=== PATIENT | male | born 1955 | race Caucasian/White ===

== ENCOUNTER 2022-08-05 00:41 | Day surgery (SDC) | payer MEDICARE, OTHER, SELFPAY ==
[2022-07-25 10:58] VITALS: BMI 27.1
--- NOTE | 2022-08-04 14:22 | P.HP_ITS ---
History of Present Illness History of Present Illness Consent: Risks, benefits, and alternatives have been discussed and questions answered. Patient agrees to proceed with procedure. Chief complaint: positive cologuard Narrative: Geremias Amin is a 67 year old male Referred for colon cancer screening Review of Systems Review of Systems: All systems reviewed & are unremarkable except as noted in HPI and below PMFSH Past Medical History Medical History Chronic low back pain History of arthritis History of hyperlipidemia History of hypertension Left knee pain Sensorineural hearing loss (SNHL) of both ears 55% Subacromial impingement of left shoulder Type 2 diabetes mellitus Surgical History Surgical History History of appendectomy 03/1979 History of elbow surgery 2011 History of hand surgery Cyst on hand and fingers- Dr. 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 Family History Family History Mother Family history of cardiovascular disease Social History Social History Smoking status: Never smoker Second hand tobacco smoke exposure: No Alcohol intake: former Substance use: never Substance use type: does not use Living arrangements: alone Gender identity (if verbalized by the patient): Male Sexual Orientation (if Verbalized by the Patient): Straight or Heterosexual Spiritual care concerns: No Meds Home Medications and Allergies Home Medications Medication Instructions Recorded Confirmed Type blood sugar diagnostic (Blood #100 ea 07/15/20 01/21/21 Rx Glucose Test strips) blood-glucose meter #1 ea 07/15/20 01/21/21 Rx lancets #200 ea 07/15/20 01/21/21 Rx rosuvastatin 5 mg tablet 5 mg PO DAILY #90 tabs 04/28/22 07/25/22 Rx glimepiride 2 mg tablet 2 mg PO BID #180 tabs 05/25/22 07/25/22 Rx Allergies Allergy/AdvReac Type Severity Reaction Status Date / Time dapagliflozin [From Farxiga] AdvReac Intermediate Other Verified 08/05/22 07:24 metformin AdvReac Intermediate diarrhea Verified 08/05/22 07:24 Exam Const: General: alert Orientation/consciousness: patient oriented x3 Resp: Auscultation: clear to auscultation bilaterally Cardio: Rhythm: regular rhythm GI: GI Palp: Yes Soft to palpation and No Tenderness to palpation present (GI) Neuro: General: patient oriented x3 Assessment and Plan Assessment and plan (1) Colon cancer screening: Code(s): Z12.11 - Encounter for screening for malignant neoplasm of colon Status: Acute Assessment and Plan: Colonoscopy with possible biopsy or polypectomy or cautery or injection of subst ances.
[2022-08-05 07:27] VITALS: BP 113/86; PULSE 86; RESP 20; TEMP 36.4; O2SAT 99
[2022-08-05] MEDS: LACTATED RINGERS 1,000 ML 150 ML IV CONT (07:35)
[2022-08-05 07:41] LABS: Glucose Point of Care 212 mg/dl (65-105)
--- NOTE | 2022-08-05 08:13 | WPDANESEPPF ---
Anes - Initial Pre Proc Eval Procedure: Operation Date: 08/05/22 08:30 Proposed Procedures p Colonoscopy - Sebastian Pulido MD Date/Time: 08/05/22 08:13 Surgeon: Sebastian Pulido MD Pre Op Diagnosis: positive cologuard Patient Data Age: 67 Gender: M Height: 1.78 m Weight: 87 kg Last Vital Signs Temp 97.6 F 08/05/22 07:27 Pulse 86 08/05/22 07:27 Resp 20 08/05/22 07:27 BP 113/86 08/05/22 07:27 Pulse Ox 99 08/05/22 07:27 O2 Del Method Room Air 08/05/22 07:27 Allergies Allergy/AdvReac Type Severity Reaction Status Date / Time dapagliflozin [From [facility]] AdvReac Intermediate Other Verified 08/05/22 07:24 metformin AdvReac Intermediate diarrhea Verified 08/05/22 07:24 Home Medications Medication Instructions Recorded Confirmed Type blood sugar diagnostic (Blood #100 ea 07/15/20 01/21/21 Rx Glucose Test strips) blood-glucose meter #1 ea 07/15/20 01/21/21 Rx lancets #200 ea 07/15/20 01/21/21 Rx rosuvastatin 5 mg tablet 5 mg PO DAILY #90 tabs 04/28/22 07/25/22 Rx glimepiride 2 mg tablet 2 mg PO BID #180 tabs 05/25/22 07/25/22 Rx Laboratory Tests 08/05/22 07:37 POC Capillary Glucose 212 mg/dl H mg/dl (65-105) Patient hx anesthesia problems: none Family hx anesthesia problems: none Results Review: All pre-operative results and documents have been reviewed as part of the pre-operative evaluation. [facility] Past Medical History Medical History Chronic low back pain History of arthritis History of hyperlipidemia History of hypertension Left knee pain Sensorineural hearing loss (SNHL) of both ears 55% Subacromial impingement of left shoulder Type 2 diabetes mellitus Surgical History Surgical History History of appendectomy 03/1979 History of elbow surgery 2011 History of hand surgery Cyst on hand and fingers- Dr. 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 Family History Family History Mother Family history of cardiovascular disease Social History Social History Smoking status: Never smoker Second hand tobacco smoke exposure: No Alcohol intake: former Substance use: never Substance use type: does not use Living arrangements: alone Gender identity (if verbalized by the patient): Male Sexual Orientation (if Verbalized by the Patient): Straight or Heterosexual Spiritual care concerns: No Anes - Eval Final PreProcedure Day of Procedure 08/05/22 08:13 Patient weight: normal Heart: regular rate and rhythm Lungs: clear to auscultation Airway: Mallampati scale class II Neurological: alert and oriented Last oral intake: >/= 8 hours ASA classification: III Emergent: no Anesthetic plan: proceed Anesthesia type and monitoring: general GIVS and standard monitoring Results Review: All pre-operative results and documents have been reviewed as part of the pre-operative evaluation. Informed Consent: The patient's anesthetic plan and its attendant risks and benefits were discussed with the patient/family/POA. Questions were solicited and answers provided to the satisfaction of the patient/family/POA.
[2022-08-05 08:42] VITALS: BP 100/69; PULSE 66; RESP 16; O2SAT 97
[2022-08-05 08:52] VITALS: BP 97/72; PULSE 64; RESP 22; O2SAT 97
[2022-08-05 09:02] VITALS: BP 117/78; PULSE 58; RESP 22; O2SAT 99
== END 2022-08-05 09:30 | disposition home or self-care (01) ==
PROVIDERS: PCP Family Medicine; Visit Provider Internal Medicine Gastroenterology
PROC: 0DJD8ZZ Inspection of Lower Intestinal Tract, Via Natural or Artificial Opening Endoscopic (ICD-10-PCS; CPT 45378; principal; 2022-08-05 08:30)
DX: Z12.11 Encounter for screening for malignant neoplasm of colon (principal); K57.30 Diverticulosis of large intestine without perforation or abscess without bleeding; D12.5 Benign neoplasm of sigmoid colon; D12.3 Benign neoplasm of transverse colon; R19.5 Other fecal abnormalities; Z79.84 Long term (current) use of oral hypoglycemic drugs; I10 Essential (primary) hypertension; E78.5 Hyperlipidemia, unspecified; E11.9 Type 2 diabetes mellitus without complications
CPT/HCPCS: 45385; 45381; 82948; 88305; J2704; J7120